=== PATIENT | male | born 1950 | race American Indian/Alaskan Native ===

== ENCOUNTER 2020-09-09 19:05 | Inpatient (IN) | payer MEDICARE, OTHER ==
[2020-09-09 20:44] LABS: Basophils % (Auto) 0.4 % (0.0-1.8); Eosinophils % (Auto) 0.3 % (0.0-4.3); Hemoglobin 6.2 gm/dl (11.8-15.2); Lymphocytes # (Auto) 1.3 K/mm3 (1.2-5.4); Lymphocytes % (Auto) 13.7 % (13.4-35.0); Mean Corpuscular HGB Conc 34 % (32-34); Mean Corpuscular Volume 92 fl (84-94); Monocytes # (Auto) 0.6 K/mm3 (0.0-0.8); Monocytes % (Auto) 6.6 % (0.0-7.3); Platelet Count 230 K/mm3 (140-440); Red Blood Count 1.97 M/mm3 (3.65-5.03); Red Cell Distribution Width 15.5 % (13.2-15.2)
[2020-09-09 21:02] LABS: Hematocrit 18.1 % (35.5-45.6)
[2020-09-09 21:04] LABS: Albumin 3.3 g/dL (3.9-5); Calcium 8.3 mg/dL (8.4-10.2)
[2020-09-09] MEDS ORDERED: SODIUM CHLORIDE 0.9% 500 ML 500 ML IV ONE ×2 (21:59→23:08)
--- NOTE | 2020-09-09 22:19 | Emergency Department Report ---
ED General Adult HPI - General Chief complaint: Abdominal Pain Stated complaint: BLACK STOOL/VOMIT Time Seen by Provider: 09/09/20 21:58 Source: patient Mode of arrival: Ambulatory Limitations: No Limitations - History of Present Illness Initial comments: Patient is a 70-year-old male who presents with dark stools and epigastric abdominal pain. Patient states his pain has been going on for last 3 days he states he has had dark tarry stools. He states that the tarry stools been going on for 2 days he informed his primary care doctor who told him he needs to come to the emergency department as pain is a burning type pain is located in his belly that is a 6 out of 10 nothing makes the pain better nothing makes it worse. - Related Data Home Medications Medication Instructions Recorded Confirmed Last Taken Atorvastatin Calcium [Lipitor] 80 mg PO QDAY 09/09/20 09/09/20 Unknown Clopidogrel [Plavix] 75 mg PO QDAY 09/09/20 09/09/20 Unknown Metoprolol Tartrate [Lopressor] 50 mg PO BID 09/09/20 09/09/20 Unknown lisinopriL [Lisinopril] 10 mg PO QDAY 09/09/20 09/09/20 Unknown metFORMIN [Glucophage] 500 mg PO BID 09/09/20 09/09/20 Unknown Allergies Allergy/AdvReac Type Severity Reaction Status Date / Time No Known Allergies Allergy Verified 09/09/20 22:00 ED Review of Systems ROS: Stated complaint: BLACK STOOL/VOMIT Other details as noted in HPI Constitutional: denies: chills, fever Eyes: denies: eye pain, eye discharge, vision change ENT: denies: ear pain, throat pain Respiratory: denies: cough, shortness of breath, wheezing Cardiovascular: denies: chest pain, palpitations Endocrine: no symptoms reported Gastrointestinal: abdominal pain, hematochezia, other. denies: nausea, diarrhea Genitourinary: denies: urgency, dysuria Musculoskeletal: denies: back pain, joint swelling, arthralgia Skin: denies: rash, lesions Neurological: denies: headache, weakness, paresthesias Psychiatric: denies: anxiety, depression Hematological/Lymphatic: denies: easy bleeding, easy bruising ED Past Medical Hx - Past Medical History Previous Medical History?: Yes Hx Hypertension: Yes Hx Diabetes: Yes Hx GERD: Yes - Surgical History Past Surgical History?: Yes Hx Coronary Stent: Yes Hx Open Heart Surgery: Yes - Medications Home Medications: Home Medications Medication Instructions Recorded Confirmed Last Taken Type Atorvastatin Calcium [Lipitor] 80 mg PO QDAY 09/09/20 09/09/20 Unknown History Clopidogrel [Plavix] 75 mg PO QDAY 09/09/20 09/09/20 Unknown History Metoprolol Tartrate [Lopressor] 50 mg PO BID 09/09/20 09/09/20 Unknown History lisinopriL [Lisinopril] 10 mg PO QDAY 09/09/20 09/09/20 Unknown History metFORMIN [Glucophage] 500 mg PO BID 09/09/20 09/09/20 Unknown History ED Physical Exam - General Limitations: No Limitations General appearance: alert, in no apparent distress - Head Head exam: Present: atraumatic, normocephalic - Eye Eye exam: Present: normal appearance - ENT ENT exam: Present: mucous membranes moist - Neck Neck exam: Present: normal inspection - Respiratory Respiratory exam: Present: normal lung sounds bilaterally. Absent: respiratory distress - Cardiovascular Cardiovascular Exam: Present: regular rate, normal rhythm. Absent: systolic murmur, diastolic murmur, rubs, gallop - GI/Abdominal GI/Abdominal exam: Present: soft, tenderness (epigastric area ), normal bowel sounds - Rectal Rectal exam: Present: heme (+) stool, black stool - Extremities Exam Extremities exam: Present: normal inspection - Back Exam Back exam: Present: normal inspection - Neurological Exam Neurological exam: Present: alert, oriented X3 - Psychiatric Psychiatric exam: Present: normal affect, normal mood - Skin Skin exam: Present: warm, dry, intact, normal color. Absent: rash ED Course Vital Signs 09/09/20 09/09/20 09/09/20 20:12 21:45 21:50 Temperature 98.3 F 97.7 F Pulse Rate 77 62 62 Respiratory 18 18 13 Rate Blood Pressure 106/52 91/39 Blood Pressure 91/41 [Left] O2 Sat by Pulse 99 100 100 Oximetry 09/09/20 09/09/20 09/09/20 22:01 22:31 22:45 Temperature Pulse Rate 57 L 67 58 L Respiratory 15 19 15 Rate Blood Pressure 90/39 94/43 92/38 Blood Pressure [Left] O2 Sat by Pulse 100 100 100 Oximetry - Consultations Consultation #1: 09/09/20 22:24 Spoke with Luis Fernando Moura [employer] patient will be admitted to the hospital. Consultation #2: 09/09/20 23:[address] Zhao patient will be admitted to the hospital. ED Medical Decision Making - Lab Data Result diagrams: 09/09/20 20:25 09/09/20 20:25 Lab Results 09/09/20 09/09/20 Range/Units 20:25 20:25 WBC 9.5 (4.5-11.0) K/mm3 RBC 1.97 L (3.65-5.03) M/mm3 Hgb 6.2 L (11.8-15.2) gm/dl Hct 18.1 L* (35.5-45.6) % MCV 92 (84-94) fl MCH 31 (28-32) pg MCHC 34 (32-34) % RDW 15.5 H (13.2-15.2) % Plt Count 230 (140-440) K/mm3 Lymph % (Auto) 13.7 (13.4-35.0) % [place] % (Auto) 6.6 (0.0-7.3) % Eos % (Auto) 0.3 (0.0-4.3) % Baso % (Auto) 0.4 (0.0-1.8) % Lymph # (Auto) 1.3 (1.2-5.4) K/mm3 [place] # (Auto) 0.6 (0.0-0.8) K/mm3 Eos # (Auto) 0.0 (0.0-0.4) K/mm3 Baso # (Auto) 0.0 (0.0-0.1) K/mm3 Seg Neutrophils % 79.0 H (40.0-70.0) % Seg Neutrophils # 7.5 (1.8-7.7) K/mm3 Sodium 134 L (137-145) mmol/L Potassium 4.0 (3.6-5.0) mmol/L Chloride 102.8 (98-107) mmol/L Carbon Dioxide 17 L (22-30) mmol/L Anion Gap 18 mmol/L BUN 54 H (9-20) mg/dL Creatinine 1.4 H (0.8-1.3) mg/dL Estimated GFR 50 ml/min BUN/Creatinine Ratio 39 % Glucose 196 H (75-100) mg/dL Calcium 8.3 L (8.4-10.2) mg/dL Total Bilirubin 0.40 (0.1-1.2) mg/dL AST 21 (5-40) units/L ALT 17 (7-56) units/L Alkaline Phosphatase 33 L (35-129) units/L Total Protein 6.1 L (6.3-8.2) g/dL Albumin 3.3 L (3.9-5) g/dL Albumin/Globulin Ratio 1.2 % Lipase 54 (13-60) units/L - Medical Decision Making MDM Cdx: Peptic ulcer ddx: Diverticulosis, AVM malformation I will get ct scan, protonix, I will transfuse blood and will consult gastroenterology. Critical Care Time: Yes (120 minutes ) Critical care attestation.: If time is entered above; I have spent that time in minutes in the direct care of this critically ill patient, excluding procedure time. Critical Care Time: 120 minutes ED Disposition Clinical Impression: Melena, Severe anemia Disposition: OP ADMIT IP TO THIS HOSP Is pt being admited?: Yes Does the pt Need Aspirin: No Condition: Stable
[2020-09-09] MEDS ORDERED: PANTOPRAZOLE 80 MG in SODIUM CHLORIDE 0.9% 100 ML IV SCH (23:00)
[2020-09-09 23:06] LABS: INR 1.24 (0.87-1.13); Partial Thromboplastin Time 25.5 Sec. (24.2-36.6)
[2020-09-09] MEDS ORDERED: ACETAMINOPHEN 325 MG TAB PO PRN (23:18)
[2020-09-09] MEDS ORDERED: ONDANSETRON 4 MG/2 ML INJ IV PRN (23:18)
[2020-09-09] MEDS ORDERED: ALBUTEROL 2.5 MG/3 ML NEBU IH PRN (23:18)
[2020-09-09] MEDS ORDERED: DEXTROSE 50% IN WATER (25GM) 50 ML SYRINGE IV PRN (23:23)
--- NOTE | 2020-09-09 23:29 | History and Physical Report ---
History of Present Illness Date of examination: 09/09/20 Date of admission: 09/09/20 Chief complaint: Abdominal pain History of present illness: 70-year-old male with past medical history of hypertension, diabetes and GERD was brought to the emergency room with dark stools and epigastric abdominal pain which is pain is a burning type pain is located in his belly that is a 6 out of 10 nothing makes the pain better nothing makes it worse. . Patient states his pain has been going on for last 3 days he states he has had dark tarry stools. He states that the tarry stools been going on for 2 days he informed his primary care doctor who told him he needs to come to the emergency department . In the emergency room patient is found to have hemoglobin of 6.2 and hematocrit 18.1 also patient BUN is 54 creatinine 1.4 Past History Past Medical History: diabetes, GERD, hypertension Medications and Allergies Allergies Allergy/AdvReac Type Severity Reaction Status Date / Time No Known Allergies Allergy Verified 09/09/20 22:00 Home Medications Medication Instructions Recorded Confirmed Last Taken Type Atorvastatin Calcium [Lipitor] 80 mg PO QDAY 09/09/20 09/09/20 Unknown History Clopidogrel [Plavix] 75 mg PO QDAY 09/09/20 09/09/20 Unknown History Metoprolol Tartrate [Lopressor] 50 mg PO BID 09/09/20 09/09/20 Unknown History lisinopriL [Lisinopril] 10 mg PO QDAY 09/09/20 09/09/20 Unknown History metFORMIN [Glucophage] 500 mg PO BID 09/09/20 09/09/20 Unknown History Active Meds: Active Medications Acetaminophen (Acetaminophen 325 Mg Tab) 650 mg PO Q4H PRN PRN Reason: Pain MILD(1-3)/Fever >100.5/MARTINEZ Albuterol (Albuterol 2.5 Mg/3 Ml Nebu) 2.5 mg IH Q3HRT PRN PRN Reason: Shortness Of Breath Albuterol/Ipratropium (Ipratropium/Albuterol Sulfate 3 Ml Ampul.Neb) 1 ampul IH Q6HRT [facility] Dextrose (Dextrose 50% In Water (25gm) 50 Ml Syringe) 50 ml IV Q30MIN PRN; Protocol PRN Reason: Hypoglycemia Pantoprazole Sodium 80 mg/ (Sodium Chloride) 100 mls @ 10 mls/hr IV DIRECT [facility] Last Admin: 09/09/20 22:56 Dose: 8 mg/hr, 10 mls/hr Documented by: Sodium Chloride (Nacl 0.9% 1000 Ml) 1,000 mls @ 100 mls/hr IV DIRECT [facility] Pantoprazole Sodium 80 mg/ (Sodium Chloride) 100 mls @ 10 mls/hr IV DIRECT [facility] Insulin Human Lispro (Insulin Lispro 100 Unit/Ml) 0 unit SUB-Q Q6HR [facility]; Protoc ol Lisinopril (Lisinopril 10 Mg Tab) 10 mg PO QDAY [facility] Metoprolol Tartrate (Metoprolol Tartrate 100 Mg Tab) 50 mg PO BID [facility] Miscellaneous Medication (Atorvastatin Calcium [Lipitor]) 80 mg PO QDAY [facility] Ondansetron HCl (Ondansetron 4 Mg/2 Ml Inj) 4 mg IV Q8H PRN PRN Reason: Nausea And Vomiting Sodium Chloride (Sodium Chloride 0.9% 10 Ml Flush Syringe) 10 ml IV BID [facility] Sodium Chloride (Sodium Chloride 0.9% 10 Ml Flush Syringe) 10 ml IV PRN PRN PRN Reason: LINE FLUSH Review of Systems Gastrointestinal: abdominal pain, nausea, melena Exam - Constitutional Vitals: Temp Pulse Resp BP Pulse Ox 97.7 F 58 L 15 92/38 100 09/09/20 21:50 09/09/20 22:45 09/09/20 22:45 09/09/20 22:45 09/09/20 22:45 General appearance: Present: no acute distress, well-nourished - EENT Eyes: Present: PERRL ENT: hearing intact, clear oral mucosa - Neck Neck: Present: supple, normal ROM - Respiratory Respiratory effort: normal Respiratory: bilateral: CTA - Cardiovascular Heart Sounds: Present: S1 & S2. Absent: rub, click - Extremities Extremities: pulses symmetrical, No edema Peripheral Pulses: within normal limits - Abdominal General gastrointestinal: Present: soft, non-tender, non-distended, normal bowel sounds Male genitourinary: Present: normal - Integumentary Integumentary: Present: clear, warm, dry - Musculoskeletal Musculoskeletal: gait normal, strength equal bilaterally - Psychiatric Psychiatric: appropriate mood/affect, intact judgment & insight - Neurologic Neurologic: CNII-XII intact, moves all extremities Results - Labs CBC & Chem 7: 09/09/20 20:25 05/25/21 20:25 Labs: Laboratory Last Values WBC 9.5 K/mm3 (4.5-11.0) 09/09/20 20: RBC 1.97 M/mm3 (3.65-5.03) L 09/09/20 20:25 Hgb 6.2 gm/dl (11.8-15.2) L 09/09/20 20:25 Hct 18.1 % (35.5-45.6) L* 09/09/20 20:25 MCV 92 fl (84-94) 09/09/20 20:25 MCH 31 pg (28-32) 09/09/20 20: MCHC 34 % (32-34) 09/09/20 20: RDW 15.5 % (13.2-15.2) H 09/09/20 20:25 Plt Count 230 K/mm3 (140-440) 09/09/20 20:25 Lymph % (Auto) 13.7 % (13.4-35.0) 09/09/20 20:25 [place] % (Auto) 6.6 % (0.0-7.3) 09/09/20 20: Eos % (Auto) 0.3 % (0.0-4.3) 09/09/20 20: Baso % (Auto) 0.4 % (0.0-1.8) 09/09/20 20:25 Lymph # (Auto) 1.3 K/mm3 (1.2-5.4) 09/09/20 20:25 [place] # (Auto) 0.6 K/mm3 (0.0-0.8) 09/09/20 20:25 Eos # (Auto) 0.0 K/mm3 (0.0-0.4) 09/09/20 20:25 Baso # (Auto) 0.0 K/mm3 (0.0-0.1) 09/09/20 20: Seg Neutrophils % 79.0 % (40.0-70.0) H 09/09/20 20:25 Seg Neutrophils # 7.5 K/mm3 (1.8-7.7) 09/09/20 20:25 PT 15.4 Sec. (12.2-14.9) H 09/09/20 22:29 INR 1.24 (0.87-1.13) H 09/09/20: APTT 25.5 Sec. (24.2-36.6) 09/09/20: Sodium 134 mmol/L (137-145) L 09/09/20 20:25 Potassium 4.0 mmol/L (3.6-5.0) 09/09/20 20: Chloride 102.8 mmol/L (98-107) 09/09/20 20: Carbon Dioxide 17 mmol/L (22-30) L 09/09/20 20:25 Anion Gap 18 mmol/L 09/09/20 20:25 BUN 54 mg/dL (9-20) H 09/09/20 20: Creatinine 1.4 mg/dL (0.8-1.3) H 09/09/20 20:25 Estimated GFR 50 ml/min 09/09/20 20:25 BUN/Creatinine Ratio 39 % 09/09/20 20: Glucose 196 mg/dL (75-100) H 09/09/20 20: Calcium 8.3 mg/dL (8.4-10.2) L 09/09/20 20:25 Total Bilirubin 0.40 mg/dL (0.1-1.2) 09/09/20 20: AST 21 units/L (5-40) 09/09/20 20: ALT 17 units/L (7-56) 09/09/20 20:25 Alkaline Phosphatase 33 units/L (35-129) L 09/09/20 20: Total Protein 6.1 g/dL (6.3-8.2) L 09/09/20 20:25 Albumin 3.3 g/dL (3.9-5) L 09/09/20 20:25 Albumin/Globulin Ratio 1.2 % 09/09/20: Lipase 54 units/L (13-60) 09/09/20 20:25 Blood Type O POSITIVE 09/09/20: Crossmatch See Detail 09/09/20: Assessment and Plan VTE prophylaxis?: Mechanical Plan of care discussed with patient/family: Yes - Patient Problems (1) Melena Status: Acute Plan to address problem: Admit the patient to the medical telemetry. N.p.o. normal saline at the rate of 100 cc/h. Protonix drip 8 mg/h. We'll do the serial H&H. Will consult GI to evaluate the patient. Recheck CBC BMP in the morning. We'll hold the Plavix (2) Severe anemia Status: Acute Plan to address problem: We're giving 2 unit of packed red blood cell. We'll recheck CBC BMP in the m orning. Patient is on Protonix drip 8 mg/h (3) GERD (gastroesophageal reflux disease) Status: Acute Plan to address problem: We'll put the patient on Protonix 8 mg/h. Will consult GI. We'll discharge the patient on Protonix 40 mg p.o. daily (4) Diabetes 1.5, managed as type 2 Status: Acute Plan to address problem: We'll hold the Metformin. We'll put the patient on Humalog sliding scale Accu- Chek every 6 hours with moderate dose coverage. Consult diabetic education (5) Hypertension Status: Acute Plan to address problem: Hydralazine 10 mg IV every 6 hours as needed. Metoprolol 50 mg p.o. twice daily, lisinopril 10 mg p.o. daily we'll monitor the blood pressure closely (6) DVT prophylaxis Status: Acute Plan to address problem: SCD for DVT prophylaxis for GI bleeding. Protonix 8 mg/h for GI prophylaxis. Patient is a full code
[2020-09-09] MEDS: PANTOPRAZOLE 80 MG in SODIUM CHLORIDE 0.9% 100 ML IV SCH (23:45)
--- NOTE | 2020-09-10 00:05 | Cat Scan Report ---
CT ABDOMEN AND PELVIS WITH CONTRAST INDICATION: Patient complains of epigastric abd pain with dark stools CONTRAST: 100 cc Omnipaque 300 IV COMPARISON: None available. All CT scans at this location are performed using CT dose reduction for ALARA by means of automated e xposure control. FINDINGS: Lung bases are clear. Coronary artery calcifications are noted. Gallbladder and bile ducts show no abnormalities. No urinary obstructive changes are seen. Probable tiny right renal cyst is not ed. No other abdominal masses are seen. No free fluid is noted. Mild colonic diverticulosis is seen m ostly in the sigmoid area but also in the transverse colon mildly. No inflammatory changes are noted. Much of the left and rectosigmoid colon are decompressed making evaluation difficult but I do not se e definite inflammatory change. No evidence of bowel obstruction is seen. Appendix appears within nor mal limits. IMPRESSION: 1. No definite acute abnormalities are seen 2. Colonic diverticulosis 3. Much of the distal colon is decompressed making evaluation difficult. While I do not see obvious i nflammation, mild colitis is not excluded with this pattern. Signer Name: Adithya Fam MD Signed: 09/10/2020 12:01 AM Workstation Name: [email or web address]
[2020-09-10] MEDS: INSULIN LISPRO 100 UNIT/ML SUB-Q SCH ×3 (01:06→18:43)
[2020-09-10] MEDS: SODIUM CHLORIDE 0.9% 1000 ML 1,000 ML IV SCH ×2 (01:10→22:03)
[2020-09-10] MEDS: IPRATROPIUM/ALBUTEROL SULFATE 3 ML AMPUL.NEB IH SCH ×4 (02:32→20:33)
[2020-09-10 08:19] LABS: Basophils % (Auto) 0.2 % (0.0-1.8); Eosinophils % (Auto) 0.4 % (0.0-4.3); Hematocrit 26.2 % (35.5-45.6); Hemoglobin 8.7 gm/dl (11.8-15.2); Lymphocytes # (Auto) 1.6 K/mm3 (1.2-5.4); Lymphocytes % (Auto) 17.8 % (13.4-35.0); Mean Corpuscular HGB Conc 33 % (32-34); Mean Corpuscular Volume 93 fl (84-94); Monocytes # (Auto) 0.9 K/mm3 (0.0-0.8); Monocytes % (Auto) 10.4 % (0.0-7.3); Platelet Count 220 K/mm3 (140-440); Red Blood Count 2.83 M/mm3 (3.65-5.03); Red Cell Distribution Width 15.1 % (13.2-15.2)
[2020-09-10 08:25] LABS: Bilirubin,Urine NEG (Negative); Blood,Urine NEG (Negative); Color,Urine Yellow (Yellow); Mucus,Urine FEW /HPF; Protein,Urine <15 mg/dL mg/dL (Negative); Urobilinogen,Urine < 2.0 mg/dL (<2.0)
[2020-09-10 08:26] LABS: INR 1.16 (0.87-1.13)
[2020-09-10 08:34] LABS: BUN/Creatinine Ratio 43; Blood Urea Nitrogen 52 mg/dL (9-20); Calcium 8.3 mg/dL (8.4-10.2); Hemolysis Index 2
[2020-09-10] MEDS ORDERED: NON-FORMULARY EACH (Atorvastatin Calcium [Lipitor] 80 MG Tablet) PO SCH (10:00)
--- NOTE | 2020-09-10 10:16 | Consultation ---
History of Present Illness Consult date: 09/10/20 Requesting physician: CLYDE MARQUEZ Consult reason: other (GIB, CAD (on ASA & Plavix)) History of present illness: Primary Hamper Maker: Elisha Cortez Pt is a 70-year-old with a past medical hx of CAD s/p CABG x 5 (REECE to distal LAD, MERRY to OM1, SVG to OM2, SVG to diag 1, SVG to distal RCA) in 12/2015. He has since been on DAPT (bASA & Plavix). Pt states he ate a hamburger on 09/05 and subsequently developed mild abdominal discomfort. Pt reports onset of melena on 09/06, which persisted all week. He also notes watery stools for the past 2-3 days. He additionally reports N/V with "bloody vomit" x 3 instances over the past 2-3 days. In addition, pt states he began to feel weak and lightheaded upon standing x 1-2 days prior to arrival. He was noted to be severely anemic upon arrival and has since received 2u pRBCs. Pt denies any additional cardiac complaints. Of note, he has not followed up with his Primary Hamper Maker since 2015. LHC 12/2015 - left main angiographically normal, prox LAD 40%, mid LAD 95%, D1 80%, mid LCx 99%, OM1 90% (at LCx/OM1 bifurcation), distal RCA 70%, PDA diffuse disease w/50% stenosis. Echo 12/2015 - normal biventricular systolic fxn, mild AR, mild AI. Past History Past Medical History: CAD, diabetes, GERD, hypertension, hyperlipidemia Past Surgical History: CABG (2015). denies: valve replacement, PTCA Social history: denies: smoking, alcohol abuse Family history: CAD, hypertension Medications and Allergies Allergies Allergy/AdvReac Type Severity Reaction Status Date / Time No Known Allergies Allergy Verified 09/09/20 22:00 Home Medications Medication Instructions Recorded Confirmed Last Taken Type Atorvastatin Calcium [Lipitor] 80 mg PO QDAY 09/09/20 09/09/20 Unknown History Clopidogrel [Plavix] 75 mg PO QDAY 09/09/20 09/09/20 Unknown History Metoprolol Tartrate [Lopressor] 50 mg PO BID 09/09/20 09/09/20 Unknown History lisinopriL [Lisinopril] 10 mg PO QDAY 09/09/20 09/09/20 Unknown History metFORMIN [Glucophage] 500 mg PO BID 09/09/20 09/09/20 Unknown History Active Meds: Active Medications Acetaminophen (Acetaminophen 325 Mg Tab) 650 mg PO Q4H PRN PRN Reason: Pain MILD(1-3)/Fever >100.5/MARTINEZ Albuterol (Albuterol 2.5 Mg/3 Ml Nebu) 2.5 mg IH Q3HRT PRN PRN Reason: Shortness Of Breath Albuterol/Ipratropium (Ipratropium/Albuterol Sulfate 3 Ml Ampul.Neb) 1 ampul IH Q6HRT [facility] Last Admin: 09/10/20 08:27 Dose: Not Given Documented by: Atorvastatin Calcium (Atorvastatin 40 Mg Tab) 80 mg PO QDAY [facility] Dextrose (Dextrose 50% In Water (25gm) 50 Ml Syringe) 50 ml IV Q30MIN PRN; Protocol PRN Reason: Hypoglycemia Sodium Chloride (Nacl 0.9% 1000 Ml) 1,000 mls @ 100 mls/hr IV DIRECT [facility] Last Admin: 09/10/20 01:10 Dose: 100 mls/hr Documented by: Pantoprazole Sodium 80 mg/ (Sodium Chloride) 100 mls @ 10 mls/hr IV DIRECT [facility] Last Admin: 09/09/20 23:45 Dose: 8 mg/hr, 10 mls/hr Documented by: Insulin Human Lispro (Insulin Lispro 100 Unit/Ml) 0 unit SUB-Q Q6HR [facility]; Protocol Last Admin: 09/10/20 01:06 Dose: Not Given Documented by: Lisinopril (Lisinopril 10 Mg Tab) 10 mg PO QDAY [facility] Metoprolol Tartrate (Metoprolol Tartrate 50 Mg Tab) 50 mg PO BID [facility] Ondansetron HCl (Ondansetron 4 Mg/2 Ml Inj) 4 mg IV Q8H PRN PRN Reason: Nausea And Vomiting Sodium Chloride (Sodium Chloride 0.9% 10 Ml Flush Syringe) 10 ml IV BID [facility] Sodium Chloride (Sodium Chloride 0.9% 10 Ml Flush Syringe) 10 ml IV PRN PRN PRN Reason: LINE FLUSH Review of Systems Constitutional: weakness, no fever, no chills, no sweats Ears, nose, mouth and throat: no nasal congestion, no sore throat Cardiovascular: lightheadedness, no chest pain, no orthopnea, no palpitations, no rapid/irregular heart beat, no edema, no syncope, no shortness of breath, no dyspnea on exertion, no paroxysmal nocturnal dyspnea, no claudication Respiratory: no cough, no shortness of breath, no dyspnea on exertion Gastrointestinal: abdominal pain, nausea, vomiting, diarrhea, hematemesis, melena, no constipation Genitourinary Male: no dysuria, no hematuria, no flank pain Musculoskeletal: no neck stiffness, no neck pain Integumentary: no rash, no wounds Neurological: weakness, no head injury, no paralysis, no parathesias, no numbness, no tingling, no seizures, no syncope, no tremors, no ataxia, no vertigo, no headaches, no change in mentation Endocrine: no cold intolerance, no heat intolerance Hematologic/Lymphatic: no easy bruising, no easy bleeding Allergic/Immunologic: no anaphylaxis Physical Examination Last Vital Signs Temp 97.6 F 09/10/20 06:07 Pulse 70 09/10/20 06:07 Resp 18 09/10/20 06:07 BP 129/58 09/10/20 06:07 Pulse Ox 97 09/10/20 06:07 General appearance: no acute distress HEENT: Positive: EOMI, Normocephaly, Mucus Membranes Moist Neck: Positive: neck supple, trachea midline. Negative: JVD/HJR Cardiac: Positive: Reg Rate and Rhythm, S1/S2, Audible Murmur (2/6 systolic ejection murmur) Lungs: Positive: clear to auscultation (bilaterally) Neuro: Positive: Grossly Intact Abdomen: Positive: Soft Skin: Negative: Rash Musculoskeletal: No Pain, Normal Range of Motion Extremities: Present: upper extr. pulses, lower extr. pulses. Absent: edema Results 09/10/20 08:04 09/10/20 08:04 Cardiac Enzymes 09/09/20 Range/Units 20:25 AST 21 (5-40) units/L Coagulation 09/09/20 09/10/20 Range/Units 22:29 08:04 PT 15.4 H 14.6 (12.2-14.9) Sec. INR 1.24 H 1.16 H (0.87-1.13) APTT 25.5 (24.2-36.6) Sec. CBC 09/09/20 09/10/20 Range/Units 20:25 08:04 WBC 9.5 8.8 (4.5-11.0) K/mm3 RBC 1.97 L 2.83 L (3.65-5.03) M/mm3 Hgb 6.2 L 8.7 L (11.8-15.2) gm/dl Hct 18.1 L* 26.2 L D (35.5-45.6) % Plt Count 230 220 (140-440) K/mm3 Lymph # (Auto) 1.3 1.6 (1.2-5.4) K/mm3 [place] # (Auto) 0.6 0.9 H (0.0-0.8) K/mm3 Eos # (Auto) 0.0 0.0 (0.0-0.4) K/mm3 Baso # (Auto) 0.0 0.0 (0.0-0.1) K/mm3 Comprehensive Metabolic Panel 09/09/20 09/10/20 Range/Units 20:25 08:04 Sodium 134 L 137 (137-145) mmol/L Potassium 4.0 4.2 (3.6-5.0) mmol/L Chloride 102.8 105.7 (98-107) mmol/L Carbon Dioxide 17 L 19 L (22-30) mmol/L BUN 54 H 52 H (9-20) mg/dL Creatinine 1.4 H 1.2 (0.8-1.3) mg/dL Glucose 196 H 143 H (75-100) mg/dL Calcium 8.3 L 8.3 L (8.4-10.2) mg/dL AST 21 (5-40) units/L ALT 17 (7-56) units/L Alkaline Phosphatase 33 L (35-129) units/L Total Protein 6.1 L (6.3-8.2) g/dL Albumin 3.3 L (3.9-5) g/dL - Imaging and Cardiology Echo: pending, other (12/2015 - normal biventricular systolic fxn, mild AR, mild AI) Cardiac cath: report reviewed (12/2015 - left main angiographically normal, prox LAD 40%, mid LAD 95%, D1 80%, mid LCx 99%, OM1 90% (at LCx/OM1 bifurcation), distal RCA 70%, PDA diffuse disease w/50% stenosis) EKG: pending EKG interpretations - Telemetry EKG Rhythm: Sinus Rhythm Assessment and Plan Obtain echo. Pt is currently awaiting relatively low-risk procedure (EGD). RCRI Class III (2 points, 10.1% risk of MACE). In the absence of ischemic sx, there are no cardiac contraindications to EGD +/- colonoscopy at this time. Will follow. Will revisit resumption of DAPT upon resolution of GIB. Pt seen in conjunction with Dr. Russell, who agrees with the assessment and plan of care. - Patient Problems (1) GIB (gastrointestinal bleeding) Current Visit: Yes Status: Suspected (2) Hematemesis Current Visit: Yes Status: Acute (3) Melena Current Visit: Yes Status: Acute (4) Symptomatic anemia Current Visit: Yes Status: Acute (5) CAD (coronary artery disease) Current Visit: Yes Status: Chronic Qualifiers: [place] vs. transplanted heart: [place] heart (6) S/P CABG x 5 Current Visit: Yes Status: Chronic (7) Hypertension Current Visit: Yes Status: Chronic Qualifiers: Hypertension type: essential hypertension Qualified Code(s): I10 - Essential (primary) hypertension (8) HLD (hyperlipidemia) Current Visit: Yes Status: Chronic Qualifiers: Hyperlipidemia type: pure hypercholesterolemia Qualified Code(s): E78.00 - Pure hypercholesterolemia, unspecified; E78.0 - Pure hypercholesterolemia (9) DM2 (diabetes mellitus, type 2) Current Visit: Yes Status: Chronic (10) GERD (gastroesophageal reflux disease) Current Visit: Yes Status: Chronic
--- NOTE | 2020-09-10 10:30 | Consultation ---
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 By September 07, he noted onset of lightheadedness and dizziness with standing. He also had 2 or 3 days of nausea and vomiting of black material but no qasim blood or coffee grounds.. Because of ongoing symptoms, he presented to the hospital and was admitted with a hemoglobin of 6.2. Patient notes that for the last several weeks, he has had nausea that improves with p.o. intake. He is on Plavix and 81 mg aspirin daily. He denies other NSAID use. He has a history of GERD and was on medication but this was stopped due to concerns of side effects by his PCP. Otherwise, he has bowel movements daily without any change. There is been no weight loss. No chest pain or shortness of breath. Meds reviewed. 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) Social history: denies: smoking, alcohol abuse Family history: CAD, hypertension Medications and Allergies Allergies Allergy/AdvReac Type Severity Reaction Status Date / Time No Known Allergies Allergy Verified 09/09/20 22:00 Home Medications Medication Instructions Recorded Confirmed Last Taken Type Atorvastatin Calcium [Lipitor] 80 mg PO QDAY 09/09/20 09/09/20 Unknown History Clopidogrel [Plavix] 75 mg PO QDAY 09/09/20 09/09/20 Unknown History Metoprolol Tartrate [Lopressor] 50 mg PO BID 09/09/20 09/09/20 Unknown History lisinopriL [Lisinopril] 10 mg PO QDAY 09/09/20 09/09/20 Unknown History metFORMIN [Glucophage] 500 mg PO BID 09/09/20 09/09/20 Unknown History Active Meds: Active Medications Acetaminophen (Acetaminophen 325 Mg Tab) 650 mg PO Q4H PRN PRN Reason: Pain MILD(1-3)/Fever >100.5/MARTINEZ Albuterol (Albuterol 2.5 Mg/3 Ml Nebu) 2.5 mg IH Q3HRT PRN PRN Reason: Shortness Of Breath Albuterol/Ipratropium (Ipratropium/Albuterol Sulfate 3 Ml Ampul.Neb) 1 ampul IH Q6HRT SABRINA Last Admin: 09/10/20 08:27 Dose: Not Given Documented by: Atorvastatin Calcium (Atorvastatin 40 Mg Tab) 80 mg PO QDAY SABRINA Dextrose (Dextrose 50% In Water (25gm) 50 Ml Syringe) 50 ml IV Q30MIN PRN; Protocol PRN Reason: Hypoglycemia Sodium Chloride (Nacl 0.9% 1000 Ml) 1,000 mls @ 100 mls/hr IV DIRECT SABRINA Last Admin: 09/10/20 01:10 Dose: 100 mls/hr Documented by: Pantoprazole Sodium 80 mg/ (Sodium Chloride) 100 mls @ 10 mls/hr IV DIRECT SABRINA Last Admin: 09/09/20 23:45 Dose: 8 mg/hr, 10 mls/hr Documented by: Insulin Human Lispro (Insulin Lispro 100 Unit/Ml) 0 unit SUB-Q Q6HR SABRINA; Protocol Last Admin: 09/10/20 01:06 Dose: Not Given Documented by: Lisinopril (Lisinopril 10 Mg Tab) 10 mg PO QDAY [facility] Metoprolol Tartrate (Metoprolol Tartrate 50 Mg Tab) 50 mg PO BID SABRINA Ondansetron HCl (Ondansetron 4 Mg/2 Ml Inj) 4 mg IV Q8H PRN PRN Reason: Nausea And Vomiting Sodium Chloride (Sodium Chloride 0.9% 10 Ml Flush Syringe) 10 ml IV BID [facility] Sodium Chloride (Sodium Chloride 0.9% 10 Ml Flush Syringe) 10 ml IV PRN PRN PRN Reason: LINE FLUSH Review of Systems All systems: negative (as per HPI) Exam - Constitutional Vitals: Temp Pulse Resp BP Pulse Ox 97.6 F 70 18 129/58 97 09/10/20 06:07 09/10/20 06:07 09/10/20 06:07 09/10/20 06:07 09/10/20 06:07 General appearance: Present: no acute distress - EENT Eyes: Present: PERRL, EOM intact ENT: hearing intact - Respiratory Respiratory effort: normal Respiratory: bilateral: CTA - Cardiovascular Rhythm: regular Heart Sounds: Present: S1 & S2, systolic murmur (3/6) - Extremities Extremities: No edema Results - Labs CBC & Chem 7: 09/10/20 08:04 09/10/20 08:04 Labs: Abnormal lab results 09/09/20 09/09/20 09/09/20 Range/Units 20:25 20:25 22:29 RBC 1.97 L (3.65-5.03) M/mm3 Hgb 6.2 L (11.8-15.2) gm/dl Hct 18.1 L* (35.5-45.6) % RDW 15.5 H (13.2-15.2) % [place] % (Auto) (0.0-7.3) % [place] # (Auto) (0.0-0.8) K/mm3 Seg Neutrophils % 79.0 H (40.0-70.0) % PT 15.4 H (12.2-14.9) Sec. INR 1.24 H (0.87-1.13) Sodium 134 L (137-145) mmol/L Carbon Dioxide 17 L (22-30) mmol/L BUN 54 H (9-20) mg/dL Creatinine 1.4 H (0.8-1.3) mg/dL Glucose 196 H (75-100) mg/dL POC Glucose (70-105) mg/dL Calcium 8.3 L (8.4-10.2) mg/dL Alkaline Phosphatase 33 L (35-129) units/L Total Protein 6.1 L (6.3-8.2) g/dL Albumin 3.3 L (3.9-5) g/dL Ur Specific [place] (1.003-1.030) Crossmatch 09/09/20 09/10/20 09/10/20 Range/Units 22:29 00:08 05:56 RBC (3.65-5.03) M/mm3 Hgb (11.8-15.2) gm/dl Hct (35.5-45.6) % RDW (13.2-15.2) % [place] % (Auto) (0.0-7.3) % [place] # (Auto) (0.0-0.8) K/mm3 Seg Neutrophils % (40.0-70.0) % PT (12.2-14.9) Sec. INR (0.87-1.13) Sodium (137-145) mmol/L Carbon Dioxide (22-30) mmol/L BUN (9-20) mg/dL Creatinine (0.8-1.3) mg/dL Glucose (75-100) mg/dL POC Glucose 136 H 122 H (70-105) mg/dL Calcium (8.4-10.2) mg/dL Alkaline Phosphatase (35-129) units/L Total Protein (6.3-8.2) g/dL Albumin (3.9-5) g/dL Ur Specific [place] (1.003-1.030) Crossmatch See Detail 09/10/20 09/10/20 09/10/20 Range/Units 08:04 08:04 08:04 RBC 2.83 L (3.65-5.03) M/mm3 Hgb 8.7 L (11.8-15.2) gm/dl Hct 26.2 L D (35.5-45.6) % RDW (13.2-15.2) % [place] % (Auto) 10.4 H (0.0-7.3) % [place] # (Auto) 0.9 H (0.0-0.8) K/mm3 Seg Neutrophils % 71.2 H (40.0-70.0) % PT (12.2-14.9) Sec. INR 1.16 H (0.87-1.13) Sodium (137-145) mmol/L Carbon Dioxide 19 L (22-30) mmol/L BUN 52 H (9-20) mg/dL Creatinine (0.8-1.3) mg/dL Glucose 143 H (75-100) mg/dL POC Glucose (70-105) mg/dL Calcium 8.3 L (8.4-10.2) mg/dL Alkaline Phosphatase (35-129) units/L Total Protein (6.3-8.2) g/dL Albumin (3.9-5) g/dL Ur Specific [place] (1.003-1.030) Crossmatch 09/10/20 Range/Units Unknown RBC (3.65-5.03) M/mm3 Hgb (11.8-15.2) gm/dl Hct (35.5-45.6) % RDW (13.2-15.2) % [place] % (Auto) (0.0-7.3) % [place] # (Auto) (0.0-0.8) K/mm3 Seg Neutrophils % (40.0-70.0) % PT (12.2-14.9) Sec. INR (0.87-1.13) Sodium (137-145) mmol/L Carbon Dioxide (22-30) mmol/L BUN (9-20) mg/dL Creatinine (0.8-1.3) mg/dL Glucose (75-100) mg/dL POC Glucose (70-105) mg/dL Calcium (8.4-10.2) mg/dL Alkaline Phosphatase (35-129) units/L Total Protein (6.3-8.2) g/dL Albumin (3.9-5) g/dL Ur Specific [place] 1.045 H (1.003-1.030) Crossmatch Assessment and Plan 1. Melena -consistent with upper GI bleed, and most consistent with peptic ulcer disease especially in light of patient's preceding symptoms that improved with p.o. intake. He does not appear to be bleeding actively. He was on Plavix which he last took yesterday which makes hemostasis difficult. Otherwise doing well. -Await cardiac clearance - Monitor H and H and transfuse as needed -Upper endoscopy tomorrow. -Twice daily proton pump inhibitors.
[2020-09-10] MEDS: METOPROLOL TARTRATE 50 MG TAB PO SCH ×2 (10:49→22:03)
[2020-09-10] MEDS: LISINOPRIL 10 MG TAB PO SCH (10:50)
--- NOTE | 2020-09-10 11:00 | Progress Note ---
Assessment and Plan Assessment and plan: 70-year-old male with past medical history of hypertension, diabetes and GERD was brought to the emergency room with dark stools and epigastric abdominal pain which is pain is a burning type pain is located in his belly that is a 6 out of 10 nothing makes the pain better nothing makes it worse. Patient states his pain has been going on for last 3 days he states he has had dark tarry stools. He states that the tarry stools been going on for 2 days he informed his primary care doctor who told him he needs to come to the emergency department . In the emergency room patient is found to have hemoglobin of 6.2 and hematocrit 18.1 also patient BUN is 54 creatinine 1.4 Patient was on plavix and asa but had discontinued it He also states that his PCP a while ago discontinued his GERD medications due to concerns of side effect. Acute GI bleed likely secondary to gastric ulcer Severe symptomatic anemia secondary to GI bleed GERD Diabetes mellitus type 2 Hypertension Acute kidney injury with vasomotor nephropathy CAD Plan Continue current management patient hemoglobin improved following transfusion. Plan for endoscopy tomorrow. Clear liquid diet today and n.p.o. after midnight Restart PPI GI input noted Control blood pressure Await cardiac clearance. Plan of care discussed with the patient and also with GI team. History Interval history: Patient Seen and examined, no new complaints, discussed with GI plan for scope tomorrow [facility] Physical exam Narrative exam: General appearance: Present: no acute distress, well-nourished - EENT Eyes: Present: PERRL ENT: hearing intact, clear oral mucosa - Neck Neck: Present: supple, normal ROM - Respiratory Respiratory effort: normal Respiratory: bilateral: CTA - Cardiovascular Heart Sounds: Present: S1 & S2. Absent: rub, click - Extremities Extremities: pulses symmetrical, No edema Peripheral Pulses: within normal limits - Abdominal General gastrointestinal: Present: soft, non-tender, non-distended, normal bowel sounds Male genitourinary: Present: normal - Integumentary Integumentary: Present: clear, warm, dry - Musculoskeletal Musculoskeletal: gait normal, strength equal bilaterally - Psychiatric Psychiatric: appropriate mood/affect, intact judgment & insight - Neurologic Neurologic: CNII-XII intact, moves all extremities - Constitutional Vitals: Temp Pulse Resp BP Pulse Ox 97.6 F 63 18 139/59 97 09/10/20 06:07 09/10/20 10:50 09/10/20 06:07 09/10/20 10:50 09/10/20 06:07 General appearance: Present: no acute distress Results - Labs CBC & Chem 7: 09/10/20 08:04 09/10/20 08:04 Labs: Laboratory Last Values WBC 8.8 K/mm3 (4.5-11.0) 09/10/20 08:04 RBC 2.83 M/mm3 (3.65-5.03) L 09/10/20 08:04 Hgb 8.7 gm/dl (11.8-15.2) L 09/10/20 08:04 Hct 26.2 % (35.5-45.6) L D 09/10/20 08:04 MCV 93 fl (84-94) 09/10/20 08:04 MCH 31 pg (28-32) 09/10/20 08:04 MCHC 33 % (32-34) 09/10/20 08:04 RDW 15.1 % (13.2-15.2) 09/10/20 08:04 Plt Count 220 K/mm3 (140-440) 09/10/20 08:04 Lymph % (Auto) 17.8 % (13.4-35.0) 09/10/20 08:04 [place] % (Auto) 10.4 % (0.0-7.3) H 09/10/20 08:04 Eos % (Auto) 0.4 % (0.0-4.3) 09/10/20 08:04 Baso % (Auto) 0.2 % (0.0-1.8) 09/10/20 08:04 Lymph # (Auto) 1.6 K/mm3 (1.2-5.4) 09/10/20 08:04 [place] # (Auto) 0.9 K/mm3 (0.0-0.8) H 09/10/20 08:04 Eos # (Auto) 0.0 K/mm3 (0.0-0.4) 09/10/20 08:04 Baso # (Auto) 0.0 K/mm3 (0.0-0.1) 09/10/20 08:04 Seg Neutrophils % 71.2 % (40.0-70.0) H 09/10/20 08:04 Seg Neutrophils # 6.2 K/mm3 (1.8-7.7) 09/10/20 08:04 PT 14.6 Sec. (12.2-14.9) 09/10/20 08:04 INR 1.16 (0.87-1.13) H 09/10/20 08:04 APTT 25.5 Sec. (24.2-36.6) 09/09/20 22:29 Sodium 137 mmol/L (137-145) 09/10/20 08:04 Potassium 4.2 mmol/L (3.6-5.0) 09/10/20 08:04 Chloride 105.7 mmol/L (98-107) 09/10/20 08:04 Carbon Dioxide 19 mmol/L (22-30) L 09/10/20 08:04 Anion Gap 17 mmol/L 09/10/20 08:04 BUN 52 mg/dL (9-20) H 09/10/20 08:04 Creatinine 1.2 mg/dL (0.8-1.3) 09/10/20 08:04 Estimated GFR > 60 ml/min 09/10/20 08:04 BUN/Creatinine Ratio 43 % 09/10/20 08:04 Glucose 143 mg/dL (75-100) H 09/10/20 08:04 POC Glucose 122 mg/dL (70-105) H 09/10/20 05:56 Calcium 8.3 mg/dL (8.4-10.2) L 09/10/20 08:04 Total Bilirubin 0.40 mg/dL (0.1-1.2) 09/09/20 20:25 AST 21 units/L (5-40) 09/09/20 20:25 ALT 17 units/L (7-56) 09/09/20 20:25 Alkaline Phosphatase 33 units/L (35-129) L 09/09/20 20:25 Total Protein 6.1 g/dL (6.3-8.2) L 09/09/20 20:25 Albumin 3.3 g/dL (3.9-5) L 09/09/20 20:25 Albumin/Globulin Ratio 1.2 % 09/09/20 20:25 Lipase 54 units/L (13-60) 09/09/20 20:25 Urine Color Yellow (Yellow) 09/10/20 Unknown Urine Turbidity Clear (Clear) 09/10/20 Unknown Urine pH 5.0 (5.0-7.0) 09/10/20 Unknown Ur Specific [place] 1.045 (1.003-1.030) H 09/10/20 Unknown Urine Protein <15 mg/dl mg/dL (Negative) 09/10/20 Unknown Urine Glucose (UA) Neg mg/dL (Negative) 09/10/20 Unknown Urine Ketones Neg mg/dL (Negative) 09/10/20 Unknown Urine Blood Neg (Negative) 09/10/20 Unknown Urine Nitrite Neg (Negative) 09/10/20 Unknown Urine Bilirubin Neg (Negative) 09/10/20 Unknown Urine Urobilinogen < 2.0 mg/dL (<2.0) 09/10/20 Unknown Ur Leukocyte Esterase Neg (Negative) 09/10/20 Unknown Urine WBC (Auto) 1.0 /HPF (0.0-6.0) 09/10/20 Unknown Urine RBC (Auto) 2.0 /HPF (0.0-6.0) 09/10/20 Unknown Urine Mucus Few /HPF 09/10/20 Unknown Blood Type O POSITIVE 09/09/20 22:29 Antibody Screen Negative 09/09/20 22:29 Crossmatch See Detail 09/09/20 22:29 Active Medications - Current Medications Current Medications: Generic Name Dose Route Start Last Admin Trade Name Freq PRN Reason Stop Dose Admin Acetaminophen 650 mg 09/09/20 23:18 Acetaminophen 325 Mg Tab PO Q4H PRN Pain MILD(1-3)/Fever >100.5/MARTINEZ Albuterol 2.5 mg 09/09/20 23:18 Albuterol 2.5 Mg/3 Ml Nebu IH Q3HRT PRN Shortness Of Breath Albuterol/Ipratropium 1 ampul 09/10/20 02:00 09/10/20 08:27 Ipratropium/Albuterol Sulfate 3 Ml Ampul.Neb IH Not Given Q6HRT SABRINA Atorvastatin Calcium 80 mg 09/10/20 10:00 09/10/20 10:47 Atorvastatin 40 Mg Tab PO 80 mg QDAY SABRINA Administration Dextrose 50 ml 09/09/20 23:23 Dextrose 50% In Water (25gm) 50 Ml Syringe IV Q30MIN PRN Hypoglycemia Protocol Sodium Chloride 1,000 mls @ 100 mls/hr 09/09/20 23:30 09/10/20 01:10 Nacl 0.9% 1000 Ml IV 100 mls/hr DIRECT SABRINA Administration Pantoprazole Sodium 80 mg/ 100 mls @ 10 mls/hr 09/09/20 23:45 09/09/20 23:45 Sodium Chloride IV 8 mg/hr DIRECT SABRINA 10 mls/hr Administration 8 MG/HR Insulin Human Lispro 0 unit 09/10/20 00:00 09/10/20 01:06 Insulin Lispro 100 Unit/Ml SUB-Q Not Given Q6HR SABRINA Protocol Lisinopril 10 mg 09/10/20 10:00 09/10/20 10:50 Lisinopril 10 Mg Tab PO 10 mg QDAY SABRINA Administration Metoprolol Tartrate 50 mg 09/10/20 10:00 09/10/20 10:49 Metoprolol Tartrate 50 Mg Tab PO 50 mg BID SABRINA Administration Ondansetron HCl 4 mg 09/09/20 23:18 Ondansetron 4 Mg/2 Ml Inj IV Q8H PRN Nausea And Vomiting Sodium Chloride 10 ml 09/10/20 10:00 09/10/20 10:50 Sodium Chloride 0.9% 10 Ml Flush Syringe IV 10 ml BID SABRINA Administration Sodium Chloride 10 ml 09/09/20 23:18 Sodium Chloride 0.9% 10 Ml Flush Syringe IV PRN PRN LINE FLUSH
[2020-09-10] MEDS: PANTOPRAZOLE 80 MG in SODIUM CHLORIDE 0.9% 100 ML IV SCH (12:56)
[2020-09-11] MEDS: PANTOPRAZOLE 80 MG in SODIUM CHLORIDE 0.9% 100 ML IV SCH ×3 (00:42→21:04)
[2020-09-11] MEDS: INSULIN LISPRO 100 UNIT/ML SUB-Q SCH ×4 (00:56→17:50)
[2020-09-11] MEDS: IPRATROPIUM/ALBUTEROL SULFATE 3 ML AMPUL.NEB IH SCH ×4 (02:35→20:46)
[2020-09-11] MEDS: METOPROLOL TARTRATE 50 MG TAB PO SCH (09:32)
[2020-09-11] MEDS: SODIUM CHLORIDE 0.9% 1000 ML 1,000 ML IV SCH ×2 (09:34→21:54)
[2020-09-11] MEDS ORDERED: PANTOPRAZOLE 40 MG INJ IV SCH (10:00)
--- NOTE | 2020-09-11 10:09 | Electrocardiograph Report ---
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
[2020-09-11 11:08] LABS: Hematocrit 21.2 % (35.5-45.6); Hemoglobin 7.4 gm/dl (11.8-15.2)
--- NOTE | 2020-09-11 11:13 | Progress Note ---
Assessment and Plan Assessment and plan: 70-year-old male with past medical history of hypertension, diabetes and GERD was brought to the emergency room with dark stools and epigastric abdominal pain which is pain is a burning type pain is located in his belly that is a 6 out of 10 nothing makes the pain better nothing makes it worse. Patient states his pain has been going on for last 3 days he states he has had dark tarry stools. He states that the tarry stools been going on for 2 days he informed his primary care doctor who told him he needs to come to the emergency department . In the emergency room patient is found to have hemoglobin of 6.2 and hematocrit 18.1 also patient BUN is 54 creatinine 1.4 Patient was on plavix and asa but had discontinued it He also states that his PCP a while ago discontinued his GERD medications due to concerns of side effect. Acute GI bleed likely secondary to gastric ulcer Severe symptomatic anemia secondary to GI bleed GERD Diabetes mellitus type 2 Hypertension Acute kidney injury with vasomotor nephropathy CAD Plan 09/11: Patient for Endoscopy today, Cardiology input noted, low risk to proceed with procedure, and they will advise on resumption of anti platelet post endoscopy. No new reported bleeding Anticipate discharge based on finding on Endoscopy. Continue current management patient hemoglobin improved following transfusion. Plan for endoscopy tomorrow. Clear liquid diet today and n.p.o. after midnight Restart PPI GI input noted Control blood pressure Await cardiac clearance. Plan of care discussed with the patient and also with GI team. History Interval history: Patient Seen and examined, no new complaints, for endoscopy today Hospitalist Physical - Physical exam Narrative exam: General appearance: Present: no acute distress, well-nourished - EENT Eyes: Present: PERRL ENT: hearing intact, clear oral mucosa - Neck Neck: Present: supple, normal ROM - Respiratory Respiratory effort: normal Respiratory: bilateral: CTA - Cardiovascular Heart Sounds: Present: S1 & S2. Absent: rub, click - Extremities Extremities: pulses symmetrical, No edema Peripheral Pulses: within normal limits - Abdominal General gastrointestinal: Present: soft, non-tender, non-distended, normal bowel sounds Male genitourinary: Present: normal - Integumentary Integumentary: Present: clear, warm, dry - Musculoskeletal Musculoskeletal: gait normal, strength equal bilaterally - Psychiatric Psychiatric: appropriate mood/affect, intact judgment & insight - Neurologic Neurologic: CNII-XII intact, moves all extremities - Constitutional Vitals: Temp Pulse Resp BP Pulse Ox 98.5 F 72 18 108/52 98 09/11/20 05:58 09/11/20 07:55 09/11/20 07:55 09/11/20 05:58 09/11/20 07:50 General appearance: Present: no acute distress Results - Labs CBC & Chem 7: 09/11/20 10:06 09/10/20 08:04 Labs: Laboratory Last Values WBC 8.8 K/mm3 (4.5-11.0) 09/10/20 08:04 RBC 2.83 M/mm3 (3.65-5.03) L 09/10/20 08:04 Hgb 7.4 gm/dl (11.8-15.2) L 09/11/20 10:06 Hct 21.2 % (35.5-45.6) L 09/11/20 10:06 MCV 93 fl (84-94) 09/10/20 08:04 MCH 31 pg (28-32) 09/10/20 08:04 MCHC 33 % (32-34) 09/10/20 08:04 RDW 15.1 % (13.2-15.2) 09/10/20 08:04 Plt Count 220 K/mm3 (140-440) 09/10/20 08:04 Lymph % (Auto) 17.8 % (13.4-35.0) 09/10/20 08:04 [place] % (Auto) 10.4 % (0.0-7.3) H 09/10/20 08:04 Eos % (Auto) 0.4 % (0.0-4.3) 09/10/20 08:04 Baso % (Auto) 0.2 % (0.0-1.8) 09/10/20 08:04 Lymph # (Auto) 1.6 K/mm3 (1.2-5.4) 09/10/20 08:04 [place] # (Auto) 0.9 K/mm3 (0.0-0.8) H 09/10/20 08:04 Eos # (Auto) 0.0 K/mm3 (0.0-0.4) 09/10/20 08:04 Baso # (Auto) 0.0 K/mm3 (0.0-0.1) 09/10/20 08:04 Seg Neutrophils % 71.2 % (40.0-70.0) H 09/10/20 08:04 Seg Neutrophils # 6.2 K/mm3 (1.8-7.7) 09/10/20 08:04 PT 14.6 Sec. (12.2-14.9) 09/10/20 08:04 INR 1.16 (0.87-1.13) H 09/10/20 08:04 APTT 25.5 Sec. (24.2-36.6) 09/09/20 22:29 Sodium 137 mmol/L (137-145) 09/10/20 08:04 Potassium 4.2 mmol/L (3.6-5.0) 09/10/20 08:04 Chloride 105.7 mmol/L (98-107) 09/10/20 08:04 Carbon Dioxide 19 mmol/L (22-30) L 09/10/20 08:04 Anion Gap 17 mmol/L 09/10/20 08:04 BUN 52 mg/dL (9-20) H 09/10/20 08:04 Creatinine 1.2 mg/dL (0.8-1.3) 09/10/20 08:04 Estimated GFR > 60 ml/min 09/10/20 08:04 BUN/Creatinine Ratio 43 % 09/10/20 08:04 Glucose 143 mg/dL (75-100) H 09/10/20 08:04 POC Glucose 119 mg/dL (70-105) H 09/11/20 05:56 Calcium 8.3 mg/dL (8.4-10.2) L 09/10/20 08:04 Total Bilirubin 0.40 mg/dL (0.1-1.2) 09/09/20 20:25 AST 21 units/L (5-40) 09/09/20 20:25 ALT 17 units/L (7-56) 09/09/20 20:25 Alkaline Phosphatase 33 units/L (35-129) L 09/09/20 20:25 Total Protein 6.1 g/dL (6.3-8.2) L 09/09/20 20:25 Albumin 3.3 g/dL (3.9-5) L 09/09/20 20:25 Albumin/Globulin Ratio 1.2 % 09/09/20 20:25 Lipase 54 units/L (13-60) 09/09/20 20:25 Urine Color Yellow (Yellow) 09/10/20 Unknown Urine Turbidity Clear (Clear) 09/10/20 Unknown Urine pH 5.0 (5.0-7.0) 09/10/20 Unknown Ur Specific [place] 1.045 (1.003-1.030) H 09/10/20 Unknown Urine Protein <15 mg/dl mg/dL (Negative) 09/10/20 Unknown Urine Glucose (UA) Neg mg/dL (Negative) 09/10/20 Unknown Urine Ketones Neg mg/dL (Negative) 09/10/20 Unknown Urine Blood Neg (Negative) 09/10/20 Unknown Urine Nitrite Neg (Negative) 09/10/20 Unknown Urine Bilirubin Neg (Negative) 09/10/20 Unknown Urine Urobilinogen < 2.0 mg/dL (<2.0) 09/10/20 Unknown Ur Leukocyte Esterase Neg (Negative) 09/10/20 Unknown Urine WBC (Auto) 1.0 /HPF (0.0-6.0) 09/10/20 Unknown Urine RBC (Auto) 2.0 /HPF (0.0-6.0) 09/10/20 Unknown Urine Mucus Few /HPF 09/10/20 Unknown Blood Type O POSITIVE 09/09/20 22:29 Antibody Screen Negative 09/09/20 22:29 Crossmatch See Detail 09/09/20 22:29 Noe/IV: Voiding Method Urinal Active Medications - Current Medications Current Medications: Generic Name Dose Route Start Last Admin Trade Name Jacq PRN Reason Stop Dose Admin Acetaminophen 650 mg 09/09/20 23:18 Acetaminophen 325 Mg Tab PO Q4H PRN Pain MILD(1-3)/Fever >100.5/MARTINEZ Albuterol 2.5 mg 09/09/20 23:18 Albuterol 2.5 Mg/3 Ml Nebu IH Q3HRT PRN Shortness Of Breath Albuterol/Ipratropium 1 ampul 09/10/20 20:00 09/11/20 07:53 Ipratropium/Albuterol Sulfate 3 Ml Ampul.Neb IH 1 ampul Q6HRT SABRINA Administration Atorvastatin Calcium 80 mg 09/10/20 10:00 09/10/20 10:47 Atorvastatin 40 Mg Tab PO 80 mg QDAY SABRINA Administration Dextrose 50 ml 09/09/20 23:23 Dextrose 50% In Water (25gm) 50 Ml Syringe IV Q30MIN PRN Hypoglycemia Protocol Sodium Chloride 1,000 mls @ 100 mls/hr 09/09/20 23:30 09/11/20 09:34 Nacl 0.9% 1000 Ml IV 100 mls/hr DIRECT SABRINA Administration Pantoprazole Sodium 80 mg/ 100 mls @ 10 mls/hr 09/09/20 23:45 09/11/20 09:33 Sodium Chloride IV 8 mg/hr DIRECT SABRINA 10 mls/hr Administration 8 MG/HR Insulin Human Lispro 0 unit 09/10/20 00:00 09/11/20 06:55 Insulin Lispro 100 Unit/Ml SUB-Q Not Given Q6HR SABRINA Protocol Lisinopril 10 mg 09/10/20 10:00 09/10/20 10:50 Lisinopril 10 Mg Tab PO 10 mg QDAY SABRINA Administration Metoprolol Tartrate 50 mg 09/10/20 10:00 09/11/20 09:32 Metoprolol Tartrate 50 Mg Tab PO Not Given BID SABRINA Ondansetron HCl 4 mg 09/09/20 23:18 Ondansetron 4 Mg/2 Ml Inj IV Q8H PRN Nausea And Vomiting Sodium Chloride 10 ml 09/10/20 10:00 09/10/20 22:03 Sodium Chloride 0.9% 10 Ml Flush Syringe IV 10 ml BID SABRINA Administration Sodium Chloride 10 ml 09/09/20 23:18 Sodium Chloride 0.9% 10 Ml Flush Syringe IV PRN PRN LINE FLUSH Nutrition/Malnutrition Assess - Dietary Evaluation Nutrition/Malnutrition Findings: Nutrition Notes Start: 09/10/20 12:56 Freq: Status: Active Protocol: Document 09/10/20 12:56 (Rec: 09/10/20 13:04 [id number]) Nutrition Notes Need for Assessment generated from: MD Order,Education Initial or Follow up Assessment Current Diagnosis Diabetes,Hypertension Other Pertinent Diagnosis GERD, melena, suspected GIB Current Diet NPO Labs/Tests BG 143 BUN 52 Pertinent Medications Humalog Height 5 ft 6 in Weight 84.368 kg [place] Body Weight (kg) 64.54 BMI 29.9 Intake Prior to Admission Poor Weight Status Obese Subjective/Other Information MD order for diet education. Pt reports following a low sodium diet but does not monitor carb intake. Pt given education on how to adjust current meals to decrease carb intake. Pt reports not eating wel for 1 week [employer]PERINTENDENT [employer] due to nausea and some vomiting. Pt on clear liquid diet for lunch Burn Absent Trauma Absent GI Symptoms None Current % PO Negligible Minimum of two criteria No Energy Intake (severe) < or equal to 50% Estimated Energy Requirement > or equal to 5 days #2 Nutrition Diagnosis Food and nutrition-related knowledge deficit Etiology lack of recent DM education As Evidenced by Signs and Symptoms pt reports previous DM education but forgot most of what they said #1 Nutrition Diagnosis Inadequate oral intake Etiology GIB As Evidenced by Signs and Symptoms <50% EER for 1 week Is patient on ventilator? No Is Patient Ambulatory and/or Out of Bed Yes [facility]OOB) [ NUTR.MSJOOB] Kcal/Kg value to use for calculation 20 Approximate Energy Requirements Using 1687 kcal/Kg Calculation Used for Recommendations Kcal/kg Additional Notes Protein: (1-1.2g/kg AdjBW: 74kg) 74-89g Fluid: 1 ml/kcal or per MD Nutrition Intervention Change Diet Order: Advance as able Add Supplement/Snack (indicate name/kcal Ensure Clear BID /protein ) Provides kCal: 480 Provides Protein (gm) 16 Teaching Recipient Patient Learning Readiness Good Teaching Methods Discussion Response to Teaching Verbalize understanding Education Handouts Provided Carb Counting Nutrition Label Reading Tips Barriers to Learning No Barriers RD phone number provided Yes Patient aware of follow up options Yes Goal #1 Meet needs as best as possbile on clear liquid diet Goal #2 diet advancement Anticipated Discharge Needs: Unable to determine at this time Follow-Up By: 09/12/20 Additional Comments FU for intakes, ONS tolerance and diet advancement
[2020-09-11] MEDS: LISINOPRIL 10 MG TAB PO SCH (13:22)
--- NOTE | 2020-09-11 14:37 | Progress Note ---
Assessment and Plan Echo reviewed - EF 55-60%, restrictive physiology, LA mildly dilated, no hemodynamically significant , highest mean aortic valve gradient 16.84mmHg, calculated CORDELIA 1.86 cm^2, trace AR, trace MR, trace MA. Awaiting EGD in AM. No cardiac contraindications as previously noted. Will revisit resumption of DAPT upon resolution of GIB. Otherwise stable cardiac status. Pt seen in conjunction with Dr. Langley, who agrees with the assessment and plan of care. - Patient Problems (1) GIB (gastrointestinal bleeding) Current Visit: Yes Status: Suspected (2) Hematemesis Current Visit: Yes Status: Acute (3) Melena Current Visit: Yes Status: Acute (4) Symptomatic anemia Current Visit: Yes Status: Acute (5) CAD (coronary artery disease) Current Visit: Yes Status: Chronic Qualifiers: [place] vs. 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 (7) Hypertension Current Visit: Yes Status: Chronic Qualifiers: Hypertension type: essential hypertension Qualified Code(s): I10 - Essential (primary) hypertension (8) HLD (hyperlipidemia) Current Visit: Yes Status: Chronic Qualifiers: Hyperlipidemia type: pure hypercholesterolemia Qualified Code(s): E78.00 - Pure hypercholesterolemia, unspecified; E78.0 - Pure hypercholesterolemia (9) DM2 (diabetes mellitus, type 2) Current Visit: Yes Status: Chronic (10) GERD (gastroesophageal reflux disease) Current Visit: Yes Status: Chronic Subjective Date of service: 09/11/20 Principal diagnosis: GIB Interval history: EGD postponed due to scheduling issue. Pt resting comfortably in bed. No BM today. C/o headache. Otherwise no cardiac complaints. Tele reviewed - SR 60s. Objective Last Vital Signs Temp 98.4 F 09/11/20 11:28 Pulse 69 09/11/20 14:30 Resp 18 09/11/20 14:30 BP 131/57 09/11/20 11:28 Pulse Ox 98 09/11/20 11:28 - Physical Examination General: No Apparent Distress HEENT: Positive: EOMI, Normocephaly, Mucus Membranes Moist Neck: Positive: neck supple, trachea midline. Negative: JVD/HJR Cardiac: Positive: Reg Rate and Rhythm, S1/S2, Systolic Murmur (grade 2/6 [place]) Lungs: Positive: clear to auscultation (bilaterally) Neuro: Positive: Grossly Intact Abdomen: Positive: Soft Skin: Negative: Rash Musculoskeletal: No Pain, Normal Range of Motion Extremities: Present: upper extr. pulses, lower extr. pulses. Absent: edema - Labs and Meds CBC 09/11/20 Range/Units 10:06 Hgb 7.4 L (11.8-15.2) gm/dl Hct 21.2 L (35.5-45.6) % - Imaging and Cardiology EKG: report reviewed, image reviewed Echo: report reviewed (09/10/2020 - EF 55-60%, restrictive physiology, LA mildly dilated, no hemodynamically significant , highest mean aortic valve gradient 16.84mmHg, calculated CORDELIA 1.86 cm^2, trace AR, trace MR, trace MA), other (12/2015 - normal biventricular systolic fxn, mild AR, mild AI) Cardiac cath: report reviewed (12/2015 - left main angiographically normal, prox LAD 40%, mid LAD 95%, D1 80%, mid LCx 99%, OM1 90% (at LCx/OM1 bifurcation), distal RCA 70%, PDA diffuse disease w/50% stenosis) - Telemetry EKG Rhythm: Sinus Rhythm - EKG Sinus rhythms and dysrhythmias: sinus rhythm Ventricular dysrhythmias: ventricular premature com Repolarization changes or abnormalities: nonspecific abnormality, ST segment, and/or T wave
[2020-09-11] MEDS: METOPROLOL TARTRATE 25 MG TAB PO SCH (21:04)
[2020-09-12] MEDS: IPRATROPIUM/ALBUTEROL SULFATE 3 ML AMPUL.NEB IH SCH ×3 (03:59→14:19)
[2020-09-12 05:58] LABS: Hematocrit 21.8 % (35.5-45.6); Hemoglobin 7.4 gm/dl (11.8-15.2); Mean Corpuscular HGB Conc 34 % (32-34); Mean Corpuscular Volume 92 fl (84-94); Platelet Count 181 K/mm3 (140-440); Red Blood Count 2.36 M/mm3 (3.65-5.03); Red Cell Distribution Width 15.2 % (13.2-15.2)
[2020-09-12 06:19] LABS: Blood Urea Nitrogen 8 mg/dL (9-20); Calcium 7.9 mg/dL (8.4-10.2); Hemolysis Index 1
[2020-09-12 06:24] LABS: BUN/Creatinine Ratio 16
[2020-09-12] MEDS: INSULIN LISPRO 100 UNIT/ML SUB-Q SCH (06:59)
[2020-09-12] MEDS: PANTOPRAZOLE 80 MG in SODIUM CHLORIDE 0.9% 100 ML IV SCH (07:00)
[2020-09-12] MEDS: SODIUM CHLORIDE 0.9% 1000 ML 1,000 ML IV SCH (07:22)
[2020-09-12] MEDS ORDERED: WATER FOR IRRIG STERILE 1,000 ML BOTTLE ONE (07:24)
[2020-09-12] MEDS ORDERED: WATER FOR IRRIG STERILE 250 ML BOTTLE IR ONE (07:24)
--- NOTE | 2020-09-12 08:53 | Anesthesia Consultation ---
Anesthesia Consult and Med Hx Date of service: 09/12/20 - Airway Anesthetic Teeth Evaluation: Poor (multiple missing teeth, broken teeth) ROM Head & Neck: Adequate Mental/Hyoid Distance: Adequate Mallampati Class: Class II Intubation Access Assessment: Probably Good - Pre-Operative Health Status ASA Pre-Surgery Classification: ASA3 Proposed Anesthetic Plan: MAC - Pulmonary Hx Smoking: No Hx Asthma: No COPD: No Hx Pneumonia: No Hx Sleep Apnea: No - Cardiovascular System Hx Hypertension: No Hx Coronary Artery Disease: Yes Hx Heart Attack/AMI: Yes (s/p CABG x 5 (2015), EF 55-60% ) Hx Angina: No Hx Percutaneous Transluminal Coronary Angioplasty (PTCA): No Hx Pacemaker: No Hx Internal Defibrillator: No Hx Heart Murmur: No Hx Peripheral Vascular Disease: No - Gastrointestinal Hx Ulcer: Yes (GI bleed) Hx Gastroesophageal Reflux Disease: Yes - Endocrine Hx Renal Disease: No Hx End Stage Renal Disease: No Hx Cirrhosis: No Hx Liver Disease: No Hx Insulin Dependent Diabetes: Yes Hx Hyperthyroidism: No - Hematic Hx Anemia: Yes Hx Sickle Cell Disease: No - Other Systems Hx Cancer: No
--- NOTE | 2020-09-12 08:56 | Anesthesia Day of Surgery ---
Anesthesia Day of Surgery - Day of Surgery Patient Examined: Yes Patient H&P Reviewed: Yes Patient is NPO: Yes Beta Blockers: Yes Cardiac Clearance: Yes (seen by service station operator this admission)
[2020-09-12] MEDS ORDERED: propofoL 200 MG/20 ML VIAL IV ONE (09:05)
[2020-09-12] MEDS: METOPROLOL TARTRATE 25 MG TAB PO SCH ×2 (09:09→11:18)
--- NOTE | 2020-09-12 10:06 | Post Operative Note ---
Pre-op diagnosis: GI bleed Post-op diagnosis: other (Duodenal bulb, and antral ulcers. No stigmata, no active bleed.) Findings: 1. 1 cm duodenal bulb ulcer, white-based. 2. Several small gastric antral ulcers, < 5 mm, white-based. Antrum bx'd. 3. Otherwise normal EGD with no stigmata of bleeding. Procedure: EGD with bx Anesthesia: MAC Surgeon: MANOJ FONTENOT Estimated blood loss: none Pathology: list (1. Antral biopsy) Specimen disposition: to lab Condition: stable Disposition: floor (Okay to D/C on oral PPI. Minimize anticoagulation. Follow up with GI in 1 month.)
[2020-09-12] MEDS: LISINOPRIL 10 MG TAB PO SCH (11:18)
[2020-09-12] MEDS ORDERED: INSULIN LISPRO 100 UNIT/ML SUB-Q SCH (11:30)
--- NOTE | 2020-09-12 11:34 | Progress Note ---
Assessment and Plan Resume Plavix only (no ASA) when cleared by GI. Otherwise stable cardiac status. Pt may be discharged from a Cardiology standpoint. Recommend follow-up with Primary Shaft Repairer (Dr. Cortez) within 1-2 weeks. Pt verbalized understanding. Pt seen in conjunction with Dr. Langley, who agrees with the assessment and plan of care. - Patient Problems (1) GIB (gastrointestinal bleeding) Current Visit: Yes Status: Suspected (2) Hematemesis Current Visit: Yes Status: Acute (3) Melena Current Visit: Yes Status: Acute (4) Symptomatic anemia Current Visit: Yes Status: Acute (5) CAD (coronary artery disease) Current Visit: Yes Status: Chronic Qualifiers: [place] vs. transplanted heart: [place] heart (6) S/P CABG x 5 Current Visit: Yes Status: Chronic (7) Hypertension Current Visit: Yes Status: Chronic Qualifiers: Hypertension type: essential hypertension Qualified Code(s): I10 - Essential (primary) hypertension (8) HLD (hyperlipidemia) Current Visit: Yes Status: Chronic Qualifiers: Hyperlipidemia type: pure hypercholesterolemia Qualified Code(s): E78.00 - Pure hypercholesterolemia, unspecified; E78.0 - Pure hypercholesterolemia (9) DM2 (diabetes mellitus, type 2) Current Visit: Yes Status: Chronic (10) GERD (gastroesophageal reflux disease) Current Visit: Yes Status: Chronic Subjective Date of service: 09/12/20 Principal diagnosis: GIB Interval history: S/p EGD today, which revealed no active bleed. Resting comfortably in bed upon assessment following procedure. No complaints. Objective Last Vital Signs Temp 98.7 F 09/12/20 11:15 Pulse 70 09/12/20 11:15 Resp 16 09/12/20 11:15 BP 149/65 09/12/20 11:15 Pulse Ox 98 09/12/20 10:36 - Physical Examination General: No Apparent Distress HEENT: Positive: EOMI, Normocephaly, Mucus Membranes Moist Neck: Positive: neck supple, trachea midline. Negative: JVD/HJR Cardiac: Positive: Reg Rate and Rhythm, S1/S2 Lungs: Positive: clear to auscultation (bilaterally) Neuro: Positive: Grossly Intact Abdomen: Positive: Soft Skin: Negative: Rash Musculoskeletal: No Pain, Normal Range of Motion Extremities: Present: lower extr. pulses. Absent: edema - Labs and Meds CBC 09/12/20 Range/Units 05:41 WBC 6.5 (4.5-11.0) K/mm3 RBC 2.36 L (3.65-5.03) M/mm3 Hgb 7.4 L (11.8-15.2) gm/dl Hct 21.8 L (35.5-45.6) % Plt Count 181 (140-440) K/mm3 Comprehensive Metabolic Panel 09/12/20 Range/Units 05:41 Sodium 139 (137-145) mmol/L Potassium 3.5 L (3.6-5.0) mmol/L Chloride 107.4 H (98-107) mmol/L Carbon Dioxide 24 (22-30) mmol/L BUN 8 L (9-20) mg/dL Creatinine 0.5 L D (0.8-1.3) mg/dL Glucose 92 (75-100) mg/dL Calcium 7.9 L (8.4-10.2) mg/dL - Imaging and Cardiology EKG: report reviewed, image reviewed Echo: report reviewed (09/10/2020 - EF 55-60%, restrictive physiology, LA mildly dilated, no hemodynamically significant , highest mean aortic valve gradient 16.84mmHg, calculated CORDEL[place] 1.86 cm^2, trace AR, trace MR, trace OR), other (12/2015 - normal biventricular systolic fxn, mild AR, mild AI) Cardiac cath: report reviewed (12/2015 - left main angiographically normal, prox LAD 40%, mid LAD 95%, D1 80%, mid LCx 99%, OM1 90% (at LCx/OM1 bifurcation), distal RCA 70%, PDA diffuse disease w/50% stenosis) - Telemetry EKG Rhythm: Sinus Rhythm - EKG Sinus rhythms and dysrhythmias: sinus rhythm Ventricular dysrhythmias: ventricular premature com Repolarization changes or abnormalities: nonspecific abnormality, ST segment, and/or T wave
[2020-09-12 11:36] VITALS: BP 149/65
--- NOTE | 2020-09-12 12:46 | Discharge Summary ---
Providers - Providers Date of Admission: 09/09/20 23:18 Attending physician: CLYDE MARQUEZ MD 09/09/20 22:19 Consult to Physician [CONS] Stat Comment: Dr. Capone spoke with Dr. Moura @ [phone] Consulting Provider: SUZANNE MOURA Physician Instructions: Reason For Exam: gi bleed 09/09/20 23:23 Consult to Dietitian/Nutrition [CONS] Routine Physician Instructions: Reason For Exam: Reason for Consult: Diet education 09/10/20 09:20 Consult to Physician [CONS] Routine Comment: Consulting Provider: YASIR VILLA Physician Instructions: Reason For Exam: GI BLEED, CAD ON PLAVIX AND ASA Primary care physician: CHRISTINE BARRAZA Hospitalization Reason for admission: GI BLEED Condition: Stable Hospital course: 70-year-old male with past medical history of hypertension, diabetes and GERD was brought to the emergency room with dark stools and epigastric abdominal pain which is pain is a burning type pain is located in his belly that is a 6 out of 10 nothing makes the pain better nothing makes it worse. Patient states his pain has been going on for last 3 days he states he has had dark tarry stools. He states that the tarry stools been going on for 2 days he informed his primary care doctor who told him he needs to come to the emergency department . In the emergency room patient is found to have hemoglobin of 6.2 and hematocrit 18.1 also patient BUN is 54 creatinine 1.4 Patient was on plavix and asa but had discontinued it He also states that his PCP a while ago discontinued his GERD medications due to concerns of side effect. Acute GI bleed likely secondary to gastric ulcer Severe symptomatic anemia secondary to GI bleed GERD Diabetes mellitus type 2 Hypertension Acute kidney injury with vasomotor nephropathy CAD Plan 09/11: Patient for Endoscopy today, Cardiology input noted, low risk to proceed with procedure, and they will advise on resumption of anti platelet post endo scopy. No new reported bleeding Anticipate discharge based on finding on Endoscopy. Continue current management patient hemoglobin improved following transfusion. Plan for endoscopy tomorrow. Clear liquid diet today and n.p.o. after midnight Restart PPI GI input noted Control blood pressure Await cardiac clearance. Plan of care discussed with the patient and also with GI team. Per cardiology will resume Plavix only. History Interval history: Patient Seen and examined, no new complaints, for endoscopy today Pre-op diagnosis: GI bleed Post-op diagnosis: other (Duodenal bulb, and antral ulcers. No stigmata, no active bleed.) Findings: 1. 1 cm duodenal bulb ulcer, white-based. 2. Several small gastric antral ulcers, < 5 mm, white-based. Antrum bx'd. 3. Otherwise normal EGD with no stigmata of bleeding. Procedure: EGD with bx Anesthesia: MAC Surgeon: MANOJ FONTENOT Estimated blood loss: none Pathology: list (1. Antral biopsy) Specimen disposition: to lab Condition: stable Disposition: floor (Okay to D/C on oral PPI. Minimize anticoagulation. Follow up with GI in 1 month.) Disposition: TO HOME OR SELFCARE Final Discharge Diagnosis (Prints w/discharge instructions): GI bleed Time spent for discharge: 35-minute Core Measure Documentation - Palliative Care Palliative Care/ Comfort Measures: Not Applicable - Core Measures Any of the following diagnoses?: none Exam - Physical Exam Narrative exam: General appearance: Present: no acute distress, well-nourished - EENT Eyes: Present: PERRL ENT: hearing intact, clear oral mucosa - Neck Neck: Present: supple, normal ROM - Respiratory Respiratory effort: normal Respiratory: bilateral: CTA - Cardiovascular Heart Sounds: Present: S1 & S2. Absent: rub, click - Extremities Extremities: pulses symmetrical, No edema Peripheral Pulses: within normal limits - Abdominal General gastrointestinal: Present: soft, non-tender, non-distended, normal bowel sounds Male genitourinary: Present: normal - Integumentary Integumentary: Present: clear, warm, dry - Musculoskeletal Musculoskeletal: gait normal, strength equal bilaterally - Psychiatric Psychiatric: appropriate mood/affect, intact judgment & insight - Neurologic Neurologic: CNII-XII intact, moves all extremities - Constitutional Vitals: Temp Pulse Resp BP Pulse Ox 98.7 F 70 16 149/65 98 09/12/20 11:15 09/12/20 11:15 09/12/20 11:15 09/12/20 11:15 09/12/20 10:36 Plan Activity: advance as tolerated, fall precautions Diet: low fat Special Instructions: record daily weights, record daily BP diary Additional Instructions: Please do not take aspirin until cleared by the underground distribution engineer we will see in 1 month. Follow up with: CHRISTINE BARRAZA MD [Primary Care Provider] - 7 Days YASIR VILLA MD [Staff Physician] - 7 Days MANOJ FONTENOT MD [Staff Physician] - 10/03/20 Forms: Accompanied Note Prescriptions: Pantoprazole [Protonix TAB] 40 mg PO BIDAC #60 tablet
[2020-09-12] MEDS ORDERED: PANTOPRAZOLE 40 MG TAB PO SCH (16:30)
--- NOTE | 2020-09-12 16:44 | Post Anesthesia Evaluation ---
- Post Anesthesia Evaluation Patient Participated: Yes Airway Patent: Yes Stable Respiratory Function: Yes Nausea/Vomiting: No Temp > 96.8F: Yes Pain Manageable: Yes Adequeate Hydration: Yes Anesthesia Complications: No
--- NOTE | 2021-02-23 12:13 | Operative Report ---
DATE OF SURGERY: 09/12/2020 UPPER ENDOSCOPY REPORT PROCEDURE: Upper endoscopy with biopsy. PREOPERATIVE DIAGNOSIS: Gastrointestinal bleed. POSTOPERATIVE DIAGNOSIS: Duodenal ulcer. SEDATION: MAC by anesthesia. HISTORY: The patient is a 70-year-old man who presented with anemia with a hemoglobin of 6.2, and melena. He is on Plavix and aspirin daily. DESCRIPTION OF PROCEDURE: Procedure, indications, risks, and benefits were explained and consent was obtained. The patient was placed in left lateral decubitus position and sedated. Video upper endoscope was passed through the mouth and oropharynx into the descending duodenum. Scope was then gradually withdrawn with close inspection of mucosa. FINDINGS: 1. Normal-appearing esophagus with a sharp Z line. 2. Few small scattered gastric antral ulcers less than 5 mm and white base. Antral biopsies were obtained for H. pylori. 3. A 1 cm duodenal bulb ulcer that was white base with no stigmata of bleeding. 4. Otherwise, normal stomach. 5. Otherwise, normal duodenum and bulb with no evidence of fresh or old blood. The patient tolerated the procedure well without immediate complication. IMPRESSION: 1. Duodenal bulb ulcer with clean base. 2. Gastric antral erosions -- biopsied. 3. Otherwise, normal endoscopy with no bleeding. RECOMMENDATIONS: 1. Discharged to home on oral proton pump inhibitors. 2. Minimize anticoagulation. 3. Follow up biopsies. 4. Follow up with Gastroenterology in one month. TID: [id number] RECEIPT: [id number] LOREN/MILVIA/TANYA
== END 2020-09-12 16:20 | disposition home or self-care (01) | DRG 377 ==
LOC: EDBD → ED 19:05 → 3A 23:18
PROVIDERS: ADMIT Hospitalist; ATTEND Internal Medicine
PROC: 30233N1 Transfusion of Nonautologous Red Blood Cells into Peripheral Vein, Percutaneous Approach (ICD-10-PCS; 2020-09-10)
PROC: 0DB68ZX Excision of Stomach, Via Natural or Artificial Opening Endoscopic, Diagnostic (ICD-10-PCS; principal; 2020-09-12)
DX: K25.4 Chronic or unspecified gastric ulcer with hemorrhage (principal); N17.0 Acute kidney failure with tubular necrosis; K21.9 Gastro-esophageal reflux disease without esophagitis; D64.9 Anemia, unspecified; I10 Essential (primary) hypertension; I25.10 Atherosclerotic heart disease of native coronary artery without angina pectoris; E78.5 Hyperlipidemia, unspecified; E11.9 Type 2 diabetes mellitus without complications; Z95.1 Presence of aortocoronary bypass graft; Z82.49 Family history of ischemic heart disease and other diseases of the circulatory system; Z79.899 Other long term (current) drug therapy; Z95.5 Presence of coronary angioplasty implant and graft
CPT/HCPCS: 36415; 74177; 80048; 80053; 81001; 82962; 83690; 85014; 85018; 85025; 85027; 85610; 85730; 86850; 86900; 86901; 86920; 88305; 88342; 93005; 93306; 94640; 96365; 99292; G0378; C9113; J1815; J2704; J7030; J7040; P9016; Q9967